=== PATIENT | male | born 1940 | race American Indian/Alaskan Native ===

== ENCOUNTER 2017-08-10 09:05 | Outpatient (CLI) | payer MEDICARE ==
[2017-08-10] MEDS ORDERED: XYLOCAINE TOPICAL 4% TP ONE (09:48)
== END 2017-08-10 09:06 | disposition home or self-care (01) ==
LOC: WOUND 09:05
PROVIDERS: ATTEND Surgery
DX: I70.243 Atherosclerosis of native arteries of left leg with ulceration of ankle (principal); L97.321 Non-pressure chronic ulcer of left ankle limited to breakdown of skin; I70.233 Atherosclerosis of native arteries of right leg with ulceration of ankle; L97.311 Non-pressure chronic ulcer of right ankle limited to breakdown of skin; G62.9 Polyneuropathy, unspecified; F17.200 Nicotine dependence, unspecified, uncomplicated; Z72.89 Other problems related to lifestyle
CPT/HCPCS: 11042; G0463

== ENCOUNTER 2017-08-17 08:48 | Outpatient (CLI) | payer MEDICARE ==
[2017-08-17] MEDS ORDERED: XYLOCAINE TOPICAL 4% TP ONE (08:57)
== END 2017-08-17 08:49 | disposition home or self-care (01) ==
LOC: WOUND 08:48
PROVIDERS: ATTEND Surgery
DX: I70.293 Other atherosclerosis of native arteries of extremities, bilateral legs (principal); L97.311 Non-pressure chronic ulcer of right ankle limited to breakdown of skin; L97.321 Non-pressure chronic ulcer of left ankle limited to breakdown of skin; F17.210 Nicotine dependence, cigarettes, uncomplicated; Z72.89 Other problems related to lifestyle

== ENCOUNTER 2017-08-24 08:37 | Outpatient (CLI) | payer MEDICARE ==
[2017-08-24] MEDS ORDERED: XYLOCAINE TOPICAL 4% TP ONE ×2 (09:08)
== END 2017-08-24 08:38 | disposition home or self-care (01) ==
LOC: WOUND 08:37
PROVIDERS: ATTEND Surgery
DX: I70.243 Atherosclerosis of native arteries of left leg with ulceration of ankle (principal); L97.321 Non-pressure chronic ulcer of left ankle limited to breakdown of skin; I70.233 Atherosclerosis of native arteries of right leg with ulceration of ankle; L97.311 Non-pressure chronic ulcer of right ankle limited to breakdown of skin; G62.9 Polyneuropathy, unspecified; F17.200 Nicotine dependence, unspecified, uncomplicated; Z72.89 Other problems related to lifestyle
CPT/HCPCS: 87075; 87116

== ENCOUNTER 2017-08-31 08:52 | Outpatient (CLI) | payer MEDICARE ==
[2017-08-31] MEDS ORDERED: XYLOCAINE TOPICAL 4% TP ONE ×2 (09:06→09:20)
== END 2017-08-31 08:53 | disposition home or self-care (01) ==
LOC: WOUND 08:52
PROVIDERS: ATTEND Surgery
DX: I70.243 Atherosclerosis of native arteries of left leg with ulceration of ankle (principal); L97.321 Non-pressure chronic ulcer of left ankle limited to breakdown of skin; I70.233 Atherosclerosis of native arteries of right leg with ulceration of ankle; L97.311 Non-pressure chronic ulcer of right ankle limited to breakdown of skin; G62.9 Polyneuropathy, unspecified; F17.200 Nicotine dependence, unspecified, uncomplicated; Z72.89 Other problems related to lifestyle

== ENCOUNTER 2017-09-07 08:42 | Outpatient (CLI) | payer MEDICARE ==
[2017-09-07] MEDS ORDERED: XYLOCAINE TOPICAL 4% TP ONE (10:00)
== END 2017-09-07 08:43 | disposition home or self-care (01) ==
LOC: WOUND 08:42
PROVIDERS: ATTEND Surgery
DX: I70.243 Atherosclerosis of native arteries of left leg with ulceration of ankle (principal); L97.321 Non-pressure chronic ulcer of left ankle limited to breakdown of skin; I70.233 Atherosclerosis of native arteries of right leg with ulceration of ankle; L97.311 Non-pressure chronic ulcer of right ankle limited to breakdown of skin; G62.9 Polyneuropathy, unspecified; F17.200 Nicotine dependence, unspecified, uncomplicated; Z72.89 Other problems related to lifestyle

== ENCOUNTER 2017-09-14 08:49 | Outpatient (CLI) | payer MEDICARE ==
[2017-09-14] MEDS ORDERED: XYLOCAINE TOPICAL 4% TP ONE (09:23)
[2017-09-14] MEDS ORDERED: XYLOCAINE TOPICAL 2% TP ONE (09:23)
== END 2017-09-14 08:50 | disposition home or self-care (01) ==
LOC: WOUND 08:49
PROVIDERS: ATTEND Surgery
DX: I70.243 Atherosclerosis of native arteries of left leg with ulceration of ankle (principal); L97.321 Non-pressure chronic ulcer of left ankle limited to breakdown of skin; L97.311 Non-pressure chronic ulcer of right ankle limited to breakdown of skin; F17.210 Nicotine dependence, cigarettes, uncomplicated; Z72.89 Other problems related to lifestyle

== ENCOUNTER 2017-09-21 08:50 | Outpatient (CLI) | payer MEDICARE ==
[2017-09-21] MEDS ORDERED: XYLOCAINE TOPICAL 2% TP ONE (08:59)
[2017-09-21] MEDS ORDERED: XYLOCAINE TOPICAL 4% TP ONE (08:59)
== END 2017-09-21 08:51 | disposition home or self-care (01) ==
LOC: WOUND 08:50
PROVIDERS: ATTEND Surgery
DX: I70.243 Atherosclerosis of native arteries of left leg with ulceration of ankle (principal); I70.233 Atherosclerosis of native arteries of right leg with ulceration of ankle; L97.321 Non-pressure chronic ulcer of left ankle limited to breakdown of skin; L97.311 Non-pressure chronic ulcer of right ankle limited to breakdown of skin; G62.9 Polyneuropathy, unspecified; F17.200 Nicotine dependence, unspecified, uncomplicated; Z72.89 Other problems related to lifestyle

== ENCOUNTER 2017-09-28 08:58 | Outpatient (CLI) | payer MEDICARE ==
[2017-09-28] MEDS ORDERED: XYLOCAINE TOPICAL 4% TP ONE (09:10)
== END 2017-09-28 08:59 | disposition home or self-care (01) ==
LOC: WOUND 08:58
PROVIDERS: ATTEND Surgery
DX: I70.243 Atherosclerosis of native arteries of left leg with ulceration of ankle (principal); I70.233 Atherosclerosis of native arteries of right leg with ulceration of ankle; L97.321 Non-pressure chronic ulcer of left ankle limited to breakdown of skin; L97.311 Non-pressure chronic ulcer of right ankle limited to breakdown of skin; G62.9 Polyneuropathy, unspecified; F17.200 Nicotine dependence, unspecified, uncomplicated; Z72.89 Other problems related to lifestyle

== ENCOUNTER 2017-10-12 08:53 | Outpatient (CLI) | payer MEDICARE ==
[2017-10-12] MEDS ORDERED: XYLOCAINE TOPICAL 4% TP ONE (09:26)
== END 2017-10-12 08:54 | disposition home or self-care (01) ==
LOC: WOUND 08:53
PROVIDERS: ATTEND Surgery
DX: I70.243 Atherosclerosis of native arteries of left leg with ulceration of ankle (principal); I70.233 Atherosclerosis of native arteries of right leg with ulceration of ankle; L97.321 Non-pressure chronic ulcer of left ankle limited to breakdown of skin; L97.311 Non-pressure chronic ulcer of right ankle limited to breakdown of skin; E11.42 Type 2 diabetes mellitus with diabetic polyneuropathy; F17.200 Nicotine dependence, unspecified, uncomplicated; Z72.89 Other problems related to lifestyle

== ENCOUNTER 2017-10-19 08:42 | Outpatient (CLI) | payer MEDICARE ==
[2017-10-19] MEDS ORDERED: XYLOCAINE TOPICAL 4% TP ONE (10:00)
== END 2017-10-19 08:43 | disposition home or self-care (01) ==
LOC: WOUND 08:42
PROVIDERS: ATTEND Surgery
DX: I70.243 Atherosclerosis of native arteries of left leg with ulceration of ankle (principal); L97.821 Non-pressure chronic ulcer of other part of left lower leg limited to breakdown of skin; G62.9 Polyneuropathy, unspecified; F17.200 Nicotine dependence, unspecified, uncomplicated; Z72.89 Other problems related to lifestyle

== ENCOUNTER 2017-10-26 08:40 | Outpatient (CLI) | payer MEDICARE ==
[2017-10-26] MEDS ORDERED: XYLOCAINE TOPICAL 4% TP ONE ×2 (09:22→09:32)
== END 2017-10-26 08:41 | disposition home or self-care (01) ==
LOC: WOUND 08:40
PROVIDERS: ATTEND Surgery
DX: I70.243 Atherosclerosis of native arteries of left leg with ulceration of ankle (principal); L97.321 Non-pressure chronic ulcer of left ankle limited to breakdown of skin; G62.9 Polyneuropathy, unspecified; F17.200 Nicotine dependence, unspecified, uncomplicated; Z72.89 Other problems related to lifestyle

== ENCOUNTER 2017-11-02 08:51 | Outpatient (CLI) | payer MEDICARE ==
[2017-11-02] MEDS ORDERED: XYLOCAINE TOPICAL 4% TP ONE (09:24)
== END 2017-11-02 08:52 | disposition home or self-care (01) ==
LOC: WOUND 08:51
PROVIDERS: ATTEND Surgery
DX: I70.243 Atherosclerosis of native arteries of left leg with ulceration of ankle (principal); L97.321 Non-pressure chronic ulcer of left ankle limited to breakdown of skin; F17.200 Nicotine dependence, unspecified, uncomplicated; G62.9 Polyneuropathy, unspecified

== ENCOUNTER 2017-11-09 08:54 | Outpatient (CLI) | payer MEDICARE ==
[2017-11-09] MEDS ORDERED: XYLOCAINE TOPICAL 4% TP ONE (09:24)
== END 2017-11-09 08:55 | disposition home or self-care (01) ==
LOC: WOUND 08:54
PROVIDERS: ATTEND Surgery
DX: I70.243 Atherosclerosis of native arteries of left leg with ulceration of ankle (principal); L97.321 Non-pressure chronic ulcer of left ankle limited to breakdown of skin; G62.9 Polyneuropathy, unspecified; F17.200 Nicotine dependence, unspecified, uncomplicated; Z72.89 Other problems related to lifestyle

== ENCOUNTER 2017-11-16 08:44 | Outpatient (CLI) | payer MEDICARE ==
[2017-11-16] MEDS ORDERED: XYLOCAINE TOPICAL 4% TP ONE ×2 (08:57→09:01)
== END 2017-11-16 08:45 | disposition home or self-care (01) ==
LOC: WOUND 08:44
PROVIDERS: ATTEND Surgery
DX: I70.243 Atherosclerosis of native arteries of left leg with ulceration of ankle (principal); L97.321 Non-pressure chronic ulcer of left ankle limited to breakdown of skin; G62.9 Polyneuropathy, unspecified; F17.200 Nicotine dependence, unspecified, uncomplicated; Z72.89 Other problems related to lifestyle

== ENCOUNTER 2017-11-23 08:47 | Outpatient (CLI) | payer MEDICARE ==
[2017-11-23] MEDS ORDERED: XYLOCAINE TOPICAL 4% TP ONE ×2 (09:10→09:24)
== END 2017-11-23 08:48 | disposition home or self-care (01) ==
LOC: WOUND 08:47
PROVIDERS: ATTEND Surgery
DX: I70.243 Atherosclerosis of native arteries of left leg with ulceration of ankle (principal); L97.321 Non-pressure chronic ulcer of left ankle limited to breakdown of skin; G62.9 Polyneuropathy, unspecified; F17.200 Nicotine dependence, unspecified, uncomplicated; Z72.89 Other problems related to lifestyle

== ENCOUNTER 2017-11-30 08:45 | Outpatient (CLI) | payer MEDICARE ==
[2017-11-30] MEDS ORDERED: XYLOCAINE TOPICAL 4% TP ONE ×2 (09:02→09:11)
== END 2017-11-30 08:46 | disposition home or self-care (01) ==
LOC: WOUND 08:45
PROVIDERS: ATTEND Surgery
DX: I70.243 Atherosclerosis of native arteries of left leg with ulceration of ankle (principal); L97.321 Non-pressure chronic ulcer of left ankle limited to breakdown of skin; G62.9 Polyneuropathy, unspecified; F17.200 Nicotine dependence, unspecified, uncomplicated; Z72.89 Other problems related to lifestyle

== ENCOUNTER 2017-12-07 08:00 | Outpatient (CLI) | payer MEDICARE ==
[2017-12-07] MEDS ORDERED: XYLOCAINE TOPICAL 4% TP ONE (08:15)
[2017-12-07] MEDS ORDERED: NACL 0.9% 500 ML IR ONE (08:55)
[2017-12-07] MEDS ORDERED: NACL 0.9% IR PRN (08:59)
== END 2017-12-07 08:01 | disposition home or self-care (01) ==
LOC: WOUND 08:00
PROVIDERS: ATTEND Surgery
DX: I70.243 Atherosclerosis of native arteries of left leg with ulceration of ankle (principal); L97.321 Non-pressure chronic ulcer of left ankle limited to breakdown of skin; G62.9 Polyneuropathy, unspecified; F17.200 Nicotine dependence, unspecified, uncomplicated; Z72.89 Other problems related to lifestyle

== ENCOUNTER 2017-12-14 08:49 | Outpatient (CLI) | payer MEDICARE ==
[2017-12-14] MEDS ORDERED: XYLOCAINE TOPICAL 4% TP ONE (09:08)
== END 2017-12-14 08:50 | disposition home or self-care (01) ==
LOC: WOUND 08:49
PROVIDERS: ATTEND Surgery
DX: I70.243 Atherosclerosis of native arteries of left leg with ulceration of ankle (principal); L97.321 Non-pressure chronic ulcer of left ankle limited to breakdown of skin; G62.9 Polyneuropathy, unspecified; F17.200 Nicotine dependence, unspecified, uncomplicated; Z72.89 Other problems related to lifestyle

== ENCOUNTER 2017-12-21 09:03 | Outpatient (CLI) | payer MEDICARE ==
[2017-12-21] MEDS ORDERED: XYLOCAINE TOPICAL 4% TP ONE ×2 (09:24→09:30)
== END 2017-12-21 09:04 | disposition home or self-care (01) ==
LOC: WOUND 09:03
PROVIDERS: ATTEND Surgery
DX: I70.243 Atherosclerosis of native arteries of left leg with ulceration of ankle (principal); L97.321 Non-pressure chronic ulcer of left ankle limited to breakdown of skin; G62.9 Polyneuropathy, unspecified; F17.200 Nicotine dependence, unspecified, uncomplicated; Z72.89 Other problems related to lifestyle

== ENCOUNTER 2017-12-28 08:49 | Outpatient (CLI) | payer MEDICARE ==
[2017-12-28] MEDS ORDERED: XYLOCAINE TOPICAL 4% TP ONE (08:59)
== END 2017-12-28 08:50 | disposition home or self-care (01) ==
LOC: WOUND 08:49
PROVIDERS: ATTEND Surgery
DX: I70.243 Atherosclerosis of native arteries of left leg with ulceration of ankle (principal); L97.321 Non-pressure chronic ulcer of left ankle limited to breakdown of skin; G62.9 Polyneuropathy, unspecified; F17.200 Nicotine dependence, unspecified, uncomplicated; Z72.89 Other problems related to lifestyle

== ENCOUNTER 2018-01-04 08:50 | Outpatient (CLI) | payer MEDICARE ==
[2018-01-04] MEDS ORDERED: XYLOCAINE TOPICAL 4% TP ONE (09:01)
== END 2018-01-04 08:51 | disposition home or self-care (01) ==
LOC: WOUND 08:50
PROVIDERS: ATTEND Surgery
DX: I70.243 Atherosclerosis of native arteries of left leg with ulceration of ankle (principal); L97.321 Non-pressure chronic ulcer of left ankle limited to breakdown of skin; G62.9 Polyneuropathy, unspecified; F17.200 Nicotine dependence, unspecified, uncomplicated; Z72.89 Other problems related to lifestyle

== ENCOUNTER 2018-01-11 08:49 | Outpatient (CLI) | payer MEDICARE ==
[2018-01-11] MEDS ORDERED: XYLOCAINE TOPICAL 4% TP ONE ×2 (09:05→09:08)
== END 2018-01-11 08:50 | disposition home or self-care (01) ==
LOC: WOUND 08:49
PROVIDERS: ATTEND Surgery
DX: I70.243 Atherosclerosis of native arteries of left leg with ulceration of ankle (principal); L97.321 Non-pressure chronic ulcer of left ankle limited to breakdown of skin; G62.9 Polyneuropathy, unspecified; F17.200 Nicotine dependence, unspecified, uncomplicated; Z72.89 Other problems related to lifestyle

== ENCOUNTER 2018-01-18 08:39 | Outpatient (CLI) | payer MEDICARE ==
[2018-01-18] MEDS ORDERED: XYLOCAINE TOPICAL 4% TP ONE (08:46)
== END 2018-01-18 08:40 | disposition home or self-care (01) ==
LOC: WOUND 08:39
PROVIDERS: ATTEND Surgery
DX: I70.243 Atherosclerosis of native arteries of left leg with ulceration of ankle (principal); L97.321 Non-pressure chronic ulcer of left ankle limited to breakdown of skin; G62.9 Polyneuropathy, unspecified; F17.200 Nicotine dependence, unspecified, uncomplicated; Z72.89 Other problems related to lifestyle

== ENCOUNTER 2018-01-25 08:42 | Outpatient (CLI) | payer MEDICARE ==
[2018-01-25] MEDS ORDERED: XYLOCAINE TOPICAL 4% TP ONE ×2 (08:53→08:55)
== END 2018-01-25 08:43 | disposition home or self-care (01) ==
LOC: WOUND 08:42
PROVIDERS: ATTEND Surgery
DX: I70.243 Atherosclerosis of native arteries of left leg with ulceration of ankle (principal); L97.321 Non-pressure chronic ulcer of left ankle limited to breakdown of skin; G62.9 Polyneuropathy, unspecified; F17.200 Nicotine dependence, unspecified, uncomplicated; Z72.89 Other problems related to lifestyle

== ENCOUNTER 2018-02-01 08:55 | Outpatient (CLI) | payer MEDICARE ==
[2018-02-01] MEDS ORDERED: XYLOCAINE TOPICAL 4% TP ONE (09:38)
== END 2018-02-01 08:56 | disposition home or self-care (01) ==
LOC: WOUND 08:55
PROVIDERS: ATTEND Surgery
DX: I70.243 Atherosclerosis of native arteries of left leg with ulceration of ankle (principal); L97.321 Non-pressure chronic ulcer of left ankle limited to breakdown of skin; G62.9 Polyneuropathy, unspecified; F17.200 Nicotine dependence, unspecified, uncomplicated; Z72.89 Other problems related to lifestyle

== ENCOUNTER 2018-02-08 08:34 | Outpatient (CLI) | payer MEDICARE ==
[2018-02-08] MEDS ORDERED: XYLOCAINE TOPICAL 4% TP ONE (08:42)
== END 2018-02-08 08:35 | disposition home or self-care (01) ==
LOC: WOUND 08:34
PROVIDERS: ATTEND Surgery
DX: I70.243 Atherosclerosis of native arteries of left leg with ulceration of ankle (principal); L97.321 Non-pressure chronic ulcer of left ankle limited to breakdown of skin; G62.9 Polyneuropathy, unspecified; F17.200 Nicotine dependence, unspecified, uncomplicated

== ENCOUNTER 2018-05-12 13:11 | Outpatient (CLI) | payer MEDICARE ==
[2018-05-12] MEDS ORDERED: XYLOCAINE TOPICAL 4% TP ONE ×2 (13:13→13:21)
== END 2018-05-12 13:12 | disposition home or self-care (01) ==
LOC: WOUND 13:11
PROVIDERS: ATTEND Surgery
DX: L97.521 Non-pressure chronic ulcer of other part of left foot limited to breakdown of skin (principal); G62.9 Polyneuropathy, unspecified; F17.200 Nicotine dependence, unspecified, uncomplicated

== ENCOUNTER 2018-05-26 12:48 | Outpatient (CLI) | payer MEDICARE ==
[2018-05-26] MEDS ORDERED: XYLOCAINE TOPICAL 4% TP ONE ×2 (12:51→13:11)
== END 2018-05-26 12:49 | disposition home or self-care (01) ==
LOC: WOUND 12:48
PROVIDERS: ATTEND Surgery
DX: S91.302D Unspecified open wound, left foot, subsequent encounter (principal); G62.9 Polyneuropathy, unspecified; F17.200 Nicotine dependence, unspecified, uncomplicated; X58.XXXD Exposure to other specified factors, subsequent encounter

== ENCOUNTER 2018-06-02 12:47 | Outpatient (CLI) | payer MEDICARE ==
[2018-06-02] MEDS ORDERED: XYLOCAINE TOPICAL 4% TP ONE (12:59)
== END 2018-06-02 12:48 | disposition home or self-care (01) ==
LOC: WOUND 12:47
PROVIDERS: ATTEND Surgery
DX: S91.302D Unspecified open wound, left foot, subsequent encounter (principal); G62.9 Polyneuropathy, unspecified; F17.200 Nicotine dependence, unspecified, uncomplicated; X58.XXXD Exposure to other specified factors, subsequent encounter

== ENCOUNTER 2018-06-09 10:07 | Outpatient (CLI) | payer MEDICARE ==
[2018-06-09] MEDS ORDERED: XYLOCAINE TOPICAL 4% TP ONE (10:26)
[2018-06-10] MEDS ORDERED: XYLOCAINE TOPICAL 4% TP ONE (15:47)
== END 2018-06-09 10:08 | disposition home or self-care (01) ==
LOC: WOUND 10:07
PROVIDERS: ATTEND Surgery
DX: S91.302D Unspecified open wound, left foot, subsequent encounter (principal); G62.9 Polyneuropathy, unspecified; F17.200 Nicotine dependence, unspecified, uncomplicated; X58.XXXD Exposure to other specified factors, subsequent encounter

== ENCOUNTER 2018-06-16 10:00 | Outpatient (CLI) | payer MEDICARE ==
[2018-06-16] MEDS ORDERED: XYLOCAINE TOPICAL 4% TP ONE ×2 (10:06→14:57)
== END 2018-06-16 10:01 | disposition home or self-care (01) ==
LOC: WOUND 10:00
PROVIDERS: ATTEND Surgery
DX: S91.302D Unspecified open wound, left foot, subsequent encounter (principal); G62.9 Polyneuropathy, unspecified; F17.200 Nicotine dependence, unspecified, uncomplicated; X58.XXXD Exposure to other specified factors, subsequent encounter

== ENCOUNTER 2018-06-23 10:03 | Outpatient (CLI) | payer MEDICARE ==
[2018-06-23] MEDS ORDERED: XYLOCAINE TOPICAL 4% TP ONE (10:09)
[2018-06-24] MEDS ORDERED: XYLOCAINE TOPICAL 4% TP ONE (15:07)
== END 2018-06-23 10:04 | disposition home or self-care (01) ==
LOC: WOUND 10:03
PROVIDERS: ATTEND Surgery
DX: S91.302D Unspecified open wound, left foot, subsequent encounter (principal); G62.9 Polyneuropathy, unspecified; F17.200 Nicotine dependence, unspecified, uncomplicated; X58.XXXD Exposure to other specified factors, subsequent encounter

== ENCOUNTER 2018-06-30 10:19 | Outpatient (CLI) | payer MEDICARE ==
[2018-06-30] MEDS ORDERED: XYLOCAINE TOPICAL 4% TP ONE ×2 (10:27→10:48)
== END 2018-06-30 10:20 | disposition home or self-care (01) ==
LOC: WOUND 10:19
PROVIDERS: ATTEND Surgery
DX: S91.302D Unspecified open wound, left foot, subsequent encounter (principal); G62.9 Polyneuropathy, unspecified; F17.200 Nicotine dependence, unspecified, uncomplicated; X58.XXXD Exposure to other specified factors, subsequent encounter

== ENCOUNTER 2018-07-14 10:11 | Outpatient (CLI) | payer MEDICARE ==
[2018-07-14] MEDS ORDERED: XYLOCAINE TOPICAL 4% TP ONE ×2 (10:17→10:40)
== END 2018-07-14 10:12 | disposition home or self-care (01) ==
LOC: WOUND 10:11
PROVIDERS: ATTEND Surgery
DX: S91.302D Unspecified open wound, left foot, subsequent encounter (principal); G62.9 Polyneuropathy, unspecified; F17.200 Nicotine dependence, unspecified, uncomplicated; X58.XXXD Exposure to other specified factors, subsequent encounter

== ENCOUNTER 2018-07-21 09:56 | Outpatient (CLI) | payer MEDICARE ==
[2018-07-21] MEDS ORDERED: XYLOCAINE TOPICAL 4% TP ONE ×2 (10:34→10:45)
== END 2018-07-21 09:57 | disposition home or self-care (01) ==
LOC: WOUND 09:56
PROVIDERS: ATTEND Surgery
DX: S91.302D Unspecified open wound, left foot, subsequent encounter (principal); G62.9 Polyneuropathy, unspecified; F17.200 Nicotine dependence, unspecified, uncomplicated; X58.XXXD Exposure to other specified factors, subsequent encounter

== ENCOUNTER 2018-08-04 09:48 | Outpatient (CLI) | payer MEDICARE ==
[2018-08-04] MEDS ORDERED: XYLOCAINE TOPICAL 4% TP ONE ×2 (10:08→10:13)
[2018-08-04] MEDS ORDERED: SODIUM CHLORIDE FLUSH SYRINGE 10 ML IV ONE (10:13)
== END 2018-08-04 09:49 | disposition home or self-care (01) ==
LOC: WOUND 09:48
PROVIDERS: ATTEND Surgery
DX: S91.302D Unspecified open wound, left foot, subsequent encounter (principal); G62.9 Polyneuropathy, unspecified; F17.200 Nicotine dependence, unspecified, uncomplicated; X58.XXXD Exposure to other specified factors, subsequent encounter
CPT/HCPCS: 15275; Q4158

== ENCOUNTER 2018-08-11 09:49 | Outpatient (CLI) | payer MEDICARE ==
[2018-08-11] MEDS ORDERED: XYLOCAINE TOPICAL 4% TP ONE ×2 (10:00→10:12)
[2018-08-11] MEDS ORDERED: SODIUM CHLORIDE FLUSH SYRINGE 10 ML IV ONE (10:03)
[2018-08-11] MEDS ORDERED: SODIUM CHLORIDE FLUSH SYRINGE 10 ML IV PRN (10:12)
== END 2018-08-11 09:50 | disposition home or self-care (01) ==
LOC: WOUND 09:49
PROVIDERS: ATTEND Surgery
DX: S91.302D Unspecified open wound, left foot, subsequent encounter (principal); G62.9 Polyneuropathy, unspecified; F17.200 Nicotine dependence, unspecified, uncomplicated; X58.XXXD Exposure to other specified factors, subsequent encounter
CPT/HCPCS: 15275; Q4158; 15271

== ENCOUNTER 2018-08-18 09:48 | Outpatient (CLI) | payer MEDICARE ==
[2018-08-18] MEDS ORDERED: SODIUM CHLORIDE FLUSH SYRINGE 10 ML IV ONE ×2 (10:05→11:08)
== END 2018-08-18 09:49 | disposition home or self-care (01) ==
LOC: WOUND 09:48
PROVIDERS: ATTEND Surgery
DX: S91.302D Unspecified open wound, left foot, subsequent encounter (principal); G62.9 Polyneuropathy, unspecified; F17.200 Nicotine dependence, unspecified, uncomplicated; X58.XXXD Exposure to other specified factors, subsequent encounter
CPT/HCPCS: 15275; Q4158; 15271

== ENCOUNTER 2018-08-18 11:31 | Outpatient (CLI) | payer MEDICARE ==
--- NOTE | 2018-08-21 15:27 | Vascular Lab Report ---
Left Lower Extremity Venous Duplex Study: Reason for Exam: Pressure also left calf. Comments on the Right: A limited duplex study was done of the proximal veins of the right lower extremity. All veins visualized are freely compressible without evidence of internal echogenicity. Flow is spontaneous and phasic throughout. No evidence of acute or chronic thrombus is seen in any of the vessels visualized. Comments on the Left: All veins visualized are freely compressible without evidence of internal echogenicity. Flow is spontaneous and phasic throughout. No evidence of acute or chronic thrombus is seen in any of the vessels visualized. Impression: No evidence of acute or chronic deep venous thrombosis in the left lower extremity.
--- NOTE | 2018-08-21 15:27 | Vascular Lab Report ---
LOWER EXTREMITY ARTERIAL DUPLEX: REASON FOR EXAM: Peripheral arterial disease. COMMENTS ON THE RIGHT: A limited study is done of the right tibial vessels. Triphasic waveforms are seen. This is within normal limits. COMMENTS ON THE LEFT: Triphasic waveforms are seen proximally. Triphasic waveforms are seen distally. Monophasic waveforms are seen in the posterior tibial artery. No significant plaque is identified. Findings are consistent with mildly abnormal perfusion. Findings are consistent with the ability to heal distal wounds. IMPRESSION: RIGHT: Essentially normal arterial flow. LEFT:Essentially normal arterial flow. Monophasic flow noted in the posterior tibial artery. If Ulceration is in the distribution of the posterior tibial artery, consider further evaluation.
== END 2018-08-18 11:32 | disposition home or self-care (01) ==
LOC: VAS 11:31
PROVIDERS: ATTEND Surgery
DX: L97.222 Non-pressure chronic ulcer of left calf with fat layer exposed (principal); I10 Essential (primary) hypertension; M19.90 Unspecified osteoarthritis, unspecified site

== ENCOUNTER 2018-08-25 09:57 | Outpatient (CLI) | payer MEDICARE ==
[2018-08-25] MEDS ORDERED: XYLOCAINE TOPICAL 4% TP ONE ×2 (10:29→15:08)
[2018-08-25] MEDS ORDERED: SODIUM CHLORIDE FLUSH SYRINGE 10 ML IV ONE ×2 (10:29→15:08)
== END 2018-08-25 09:58 | disposition home or self-care (01) ==
LOC: WOUND 09:57
PROVIDERS: ATTEND Surgery
DX: S91.302D Unspecified open wound, left foot, subsequent encounter (principal); G62.9 Polyneuropathy, unspecified; F17.200 Nicotine dependence, unspecified, uncomplicated; X58.XXXD Exposure to other specified factors, subsequent encounter
CPT/HCPCS: 15275; Q4158

== ENCOUNTER 2018-09-01 09:42 | Outpatient (CLI) | payer MEDICARE ==
[2018-09-01] MEDS ORDERED: XYLOCAINE TOPICAL 4% TP ONE ×2 (10:23→11:00)
[2018-09-01] MEDS ORDERED: SODIUM CHLORIDE FLUSH SYRINGE 10 ML IV ONE ×2 (10:34→10:38)
== END 2018-09-01 09:43 | disposition home or self-care (01) ==
LOC: WOUND 09:42
PROVIDERS: ATTEND Surgery
DX: L97.812 Non-pressure chronic ulcer of other part of right lower leg with fat layer exposed (principal); S91.302D Unspecified open wound, left foot, subsequent encounter; G62.9 Polyneuropathy, unspecified; I87.2 Venous insufficiency (chronic) (peripheral); F17.200 Nicotine dependence, unspecified, uncomplicated; X58.XXXD Exposure to other specified factors, subsequent encounter
CPT/HCPCS: 15275; Q4158

== ENCOUNTER 2018-12-01 09:53 | Outpatient (CLI) | payer MEDICARE | END 2018-12-01 09:54 | disposition home or self-care (01) | LOC: WOUND 09:53 ==

== ENCOUNTER 2018-12-08 09:50 | Outpatient (CLI) | payer MEDICARE ==
[2018-12-08] MEDS ORDERED: XYLOCAINE TOPICAL 4% TP ONE (09:54)
== END 2018-12-08 09:51 | disposition home or self-care (01) ==
LOC: WOUND 09:50
PROVIDERS: ATTEND Surgery
DX: I70.245 Atherosclerosis of native arteries of left leg with ulceration of other part of foot (principal); I70.238 Atherosclerosis of native arteries of right leg with ulceration of other part of lower leg; L97.522 Non-pressure chronic ulcer of other part of left foot with fat layer exposed; L97.812 Non-pressure chronic ulcer of other part of right lower leg with fat layer exposed; G62.9 Polyneuropathy, unspecified; F17.200 Nicotine dependence, unspecified, uncomplicated

== ENCOUNTER 2018-12-15 10:10 | Outpatient (CLI) | payer MEDICARE | END 2018-12-15 10:11 | disposition home or self-care (01) | LOC: WOUND 10:10 ==

== ENCOUNTER 2018-12-22 09:48 | Outpatient (CLI) | payer MEDICARE ==
[2018-12-22] MEDS ORDERED: XYLOCAINE TOPICAL 2% 30ML TP ONE (10:12)
== END 2018-12-22 09:49 | disposition home or self-care (01) ==
LOC: WOUND 09:48
PROVIDERS: ATTEND Surgery
DX: I70.245 Atherosclerosis of native arteries of left leg with ulceration of other part of foot (principal); L97.522 Non-pressure chronic ulcer of other part of left foot with fat layer exposed; G62.9 Polyneuropathy, unspecified; F17.200 Nicotine dependence, unspecified, uncomplicated

== ENCOUNTER 2018-12-29 09:43 | Outpatient (CLI) | payer MEDICARE ==
[2018-12-29] MEDS ORDERED: AD OINTMENT TP PRN (09:59)
== END 2018-12-29 09:44 | disposition home or self-care (01) ==
LOC: WOUND 09:43
PROVIDERS: ATTEND Surgery
DX: I70.235 Atherosclerosis of native arteries of right leg with ulceration of other part of foot (principal); L97.522 Non-pressure chronic ulcer of other part of left foot with fat layer exposed; G62.9 Polyneuropathy, unspecified; F17.200 Nicotine dependence, unspecified, uncomplicated
CPT/HCPCS: A6250

== ENCOUNTER 2019-01-05 09:51 | Outpatient (CLI) | payer MEDICARE ==
[2019-01-05] MEDS ORDERED: XYLOCAINE TOPICAL 4% TP ONE (09:58)
== END 2019-01-05 09:52 | disposition home or self-care (01) ==
LOC: WOUND 09:51
PROVIDERS: ATTEND Surgery
DX: I70.245 Atherosclerosis of native arteries of left leg with ulceration of other part of foot (principal); L97.522 Non-pressure chronic ulcer of other part of left foot with fat layer exposed; L84 Corns and callosities; G62.9 Polyneuropathy, unspecified; F17.200 Nicotine dependence, unspecified, uncomplicated

== ENCOUNTER 2019-01-19 10:10 | Outpatient (CLI) | payer MEDICARE | END 2019-01-19 10:11 | disposition home or self-care (01) | LOC: WOUND 10:10 ==

== ENCOUNTER 2019-01-26 10:04 | Outpatient (CLI) | payer MEDICARE | END 2019-01-26 10:05 | disposition home or self-care (01) | LOC: WOUND 10:04 ==

== ENCOUNTER 2019-02-02 09:58 | Outpatient (CLI) | payer MEDICARE ==
[2019-02-02] MEDS ORDERED: XYLOCAINE TOPICAL 4% TP ONE (10:30)
== END 2019-02-02 09:59 | disposition home or self-care (01) ==
LOC: WOUND 09:58
PROVIDERS: ATTEND Surgery
DX: I70.245 Atherosclerosis of native arteries of left leg with ulceration of other part of foot (principal); L97.522 Non-pressure chronic ulcer of other part of left foot with fat layer exposed; G62.9 Polyneuropathy, unspecified; F17.200 Nicotine dependence, unspecified, uncomplicated

== ENCOUNTER 2019-02-09 09:53 | Outpatient (CLI) | payer MEDICARE | END 2019-02-09 09:54 | disposition home or self-care (01) | LOC: WOUND 09:53 ==

== ENCOUNTER 2019-02-16 09:49 | Outpatient (CLI) | payer MEDICARE ==
[2019-02-16] MEDS ORDERED: XYLOCAINE TOPICAL 4% TP ONE (10:30)
== END 2019-02-16 09:50 | disposition home or self-care (01) ==
LOC: WOUND 09:49
PROVIDERS: ATTEND Surgery
DX: I70.245 Atherosclerosis of native arteries of left leg with ulceration of other part of foot (principal); L97.522 Non-pressure chronic ulcer of other part of left foot with fat layer exposed; G62.9 Polyneuropathy, unspecified; F17.200 Nicotine dependence, unspecified, uncomplicated

== ENCOUNTER 2019-02-23 09:57 | Outpatient (CLI) | payer MEDICARE | END 2019-02-23 09:58 | disposition home or self-care (01) | LOC: WOUND 09:57 | CPT/HCPCS: 99212; G0463 ==